=== PATIENT | male | born 1990 | race Caucasian/White ===

== ENCOUNTER 2024-08-11 00:58 | Emergency (ER) | payer SELFPAY ==
[2024-08-11 01:02] VITALS: BP 142/95
[2024-08-11 01:20] VITALS: BMI 22.1
[2024-08-11 01:33] VITALS: BP 139/92
[2024-08-11 01:38] LABS: % Basophils 0.5 % (0-2); % Eosinophils 1.5 % (0-6); % Immature Granulocytes 0.4 % (0-0.5); % Lymphocytes 42.7 % (20.5-51.1); % Monocytes 9.3 % (1.7-9.3); % Neutrophils 45.6 % (42.2-75.2); Absolute Eosinophils 0.1 10^3/uL (0-0.7); Absolute Lymphocytes 3.4 10^3/uL (1.2-3.4); Absolute Monocytes 0.7 10^3/uL (0.1-0.6); Absolute Neutrophils 3.6 10^3/uL (1.4-6.5); Hematocrit 48.5 % (39.0-52.0); Hemoglobin 16.4 g/dL (13.0-18.0); Mean Corp Hgb Conc. 33.8 g/dL (33.0-37.0); Mean Corpuscular Hgb 30.2 pg (27.0-31.0); Mean Corpuscular Volume 89.3 fL (80.0-94.0); Mean Platelet Volume 11.7 fL (7.4-10.4); Nucleated Red Blood Cells % 0 % (-); Platelet Count 201 10^3/uL (130-400); Red Blood Cell Count 5.43 10^6/uL (4.70-6.10); Red Cell Dist. Width 12.3 % (11.5-14.5)
[2024-08-11 01:53] LABS: ALT (SGPT) 38 U/L (0-50); AST (SGOT) 41 U/L (17-59); Albumin 5.2 g/dl (3.5-5.0); Alcohol 144 mg/dl; Alkaline Phosphatase 52 U/L (38-126); Blood Urea Nitrogen 8 mg/dl (9-20); Calcium 9.5 mg/dl (8.4-10.2); Carbon Dioxide 30 mmol/L (22-30); Chloride 101 mmol/L (98-107); Estimated Creatinine Clearance > 125 ml/min; Glucose 118 mg/dl (70-99); Sodium 144 mmol/L (135-145); Total Bilirubin 0.3 mg/dl (0.2-1.3); Total Protein 8.1 g/dl (6.3-8.2); eGFR > 60.00
[2024-08-11 02:25] LABS: Amphetamines Negative (Negative); Barbiturates Negative (Negative); Benzodiazepines Negative (Negative); Buprenorphine Negative (Negative); Cocaine Positive (Negative); Marijuana Negative (Negative); Methadone Negative (Negative); Methamphetamines Negative (Negative); Opiates Negative (Negative); Phencyclidine Negative (Negative); Tricyclic Antidepressants Negative (Negative)
[2024-08-11] MEDS: ZOFRAN ODT (ORALLY DISINTEGRATING) 4 MG PO (02:28)
[2024-08-11] MEDS: PEPCID 40 MG PO (02:28)
[2024-08-11 03:06] LABS: Fentanyl, Urine Negative (Negative)
--- NOTE | 2024-08-11 03:11 | ED.GENMED ---
History of Present Illness
<Yin Monzon DO - Last Filed: 08/11/24 06:11>
General
Chief Complaint: Suicidal Ideation
Time Seen by Provider: 08/11/24 01:51
<KEISHA Real - Last Filed: 08/11/24 06:26>
History of Present Illness
History of Present Illness:
This is a 34 y/o male with PMH of substance abuse and SI who presents to the ED to seek inpatient treatment. He admits to SI with a thought out plan but a friend had convinced him to seek help and come to the ED tonight. He states that he has had SI
for 20 years and thinks about it on a daily basis. Most recently, he was at [facility] in [place], [place] for 7 days in Jun 2024. Previously, he has sought treatment in [place] and lived in a recovery house for 5 months and then was homeless
for a month prior to coming back to the [facility]. He spent 30 days at [facility] in 2023. He admits to using ketamine, heroin, GHB, cocaine, Percocet and Xanax. When asked what the last drug has used, he states it was ketamine 2 days ago.
Smoked 2-3 cigarettes daily. Drinks 5-35 beers daily. States he is originally from [place] and is unable to elaborate when asked what area he has recently been subsiding in. He admits to spending a lot of time in [place]. Pt denies any
thoughts of hurting others. When asked how he is feeling, he states 'like an idiot,' then when asked why, he states 'because you asked.' Denies chest pain, dyspnea, headache, N/V/F, diarrhea, cough and tremor.
Past History
<Yin Monzon DO - Last Filed: 08/11/24 06:11>
Past History
ED Past Medical History: Other (Right bundle branch block)
Social History
Alcohol: Binge drinker
Drug: Marijuana, Cocaine and Narcotics
Personal: Single
Living: with family
Employment: Employed ([employer])
Family History
Family History: Other
Phy Exam
<KEISHA Real - Last Filed: 08/11/24 06:26>
Physical Exam
Physical Exam:
Resp: muscle and respiratory effort symmetric without use of accessory muscles; even, quiet breathing
Heart: No lifts or heaves visible; regular rate and rhythm; No murmurs, rubs or gallops
Course
<Yin Monzon DO - Last Filed: 08/11/24 06:11>
Orders/Labs/Results
Orders:
Orders
08/11/24 01:08
1:1 Observation - Suicide/ Violent Behavior As Directed
Crisis Consult Urgent
Reason for Consult: SI/WITH PLAN, SEVERE DEPRESSION
08/11/24 01:27
Alcohol Urgent
Complete Blood Count/With Diff Urgent
Comprehensive Metabolic Panel Urgent
08/11/24 02:04
Fentanyl, Urine Urgent
Urine Drug Abuse Screen Urgent
Date Specimen was Collected: 08/11/24
Time Specimen was Collected: 02:02
08/11/24 02:23
Famotidine [Pepcid] 40 mg PO NOW STA
Ondansetron Orally Disint [Zofran Odt (Orally Disintegrating)] 4 mg PO NOW STA
Abnormal Lab Results
08/11/24 08/11/24
0127 02:04
MPV 11.7 H fL
(7.4-10.4)
Absolute Monos (auto) 0.7 H 10^3/uL
(0.1-0.6)
BUN 8 L mg/dl
(9-20)
Glucose 118 H mg/dl
(70-99)
Albumin 5.2 H g/dl
(3.5-5.0)
Urine Cocaine Screen Positive H
(Negative)
08/11/24 01:27
08/11/24 01:27
Vital Signs
Initial and Last Documented VS:
Initial Vital Signs
Temp Pulse Resp BP Pulse Ox
98.1 F 110 18 142/95 99
08/11/24 01:02 08/11/24 01:02 08/11/24 01:02 08/11/24 01:02 08/11/24 01:02
Last Documented Vital Signs
Temp Pulse Resp BP Pulse Ox
98.9 F 99 18 139/92 98
08/11/24 01:33 08/11/24 01:33 08/11/24 01:33 08/11/24 01:33 08/11/24 01:33
<KEIHSA Real - Last Filed: 08/11/24 06:26>
Orders/Labs/Results
Orders:
Orders
08/11/24 01:08
1:1 Observation - Suicide/ Violent Behavior As Directed
Crisis Consult Urgent
Reason for Consult: SI/WITH PLAN, SEVERE DEPRESSION
08/11/24 01:27
Alcohol Urgent
Complete Blood Count/With Diff Urgent
Comprehensive Metabolic Panel Urgent
08/11/24 02:04
Fentanyl, Urine Urgent
Urine Drug Abuse Screen Urgent
Date Specimen was Collected: 08/11/24
Time Specimen was Collected: 02:02
08/11/24 02:23
Famotidine [Pepcid] 40 mg PO NOW STA
Ondansetron Orally Disint [Zofran Odt (Orally Disintegrating)] 4 mg PO NOW STA
Abnormal Lab Results
08/11/24 08/11/24
02:04
MPV 11.7 H fL
(7.4-10.4)
Absolute Monos (auto) 0.7 H 10^3/uL
(0.1-0.6)
BUN 8 L mg/dl
(9-20)
Glucose 118 H mg/dl
(70-99)
Albumin 5.2 H g/dl
(3.5-5.0)
Urine Cocaine Screen Positive H
(Negative)
08/11/24 01:27
08/11/24 01:27
Vital Signs
Initial and Last Documented VS:
Initial Vital Signs
Temp Pulse Resp BP Pulse Ox
98.1 F 110 18 142/95 99
08/11/24 01:02 08/11/24 01:02 08/11/24 01:02 08/11/24 01:02 08/11/24 01:02
Last Documented Vital Signs
Temp Pulse Resp BP Pulse Ox
98.9 F 99 18 139/92 98
08/11/24 01:33 08/11/24 01:33 08/11/24 01:33 08/11/24 01:33 08/11/24 01:33
<Yin Monzon DO - Last Filed: 08/11/24 06:11>
*Pulse Oximetry
Patient hypoxic: no
*Critical Care Note
Total Time (30-74mins, 75-104mins- exclusive of procedures): Not Applicable
ED Attending Note
<Yin Monzon DO - Last Filed: 08/11/24 06:11>
ED Attending Note
Patient seen and examined by attending physician: Yes
I performed the substantive portion of visit, reviewed & personally made and approve the management plan that is documented in note by myself or KERLINE.: Yes
ED Attending Note:
This is a 34-year-old homeless gentleman who has a longstanding history of polysubstance abuse, alcohol abuse who presents to the ED requesting assistance with acceptance to rehab center and assistance with his ongoing depression, thoughts of
suicide. He does admit to daily thoughts of suicide, a chronic issue as well as chronic housing instability. He admits to sporadic cocaine, Xanax, Percocet and heroin use. He also admits to sporadic ketamine use. He admits to daily alcohol
consumption.
He has undergone inpatient detox programs in the past including a 7-day stay at a facility in [facility] 1 month ago.
He was also living in a sober living facility for 6 months in [place] 1 year ago.
Records reveal 1 previous ED visit 2020 for very similar presentation/similar complaint.
He denies daily medication use.
He does admit to mild nausea but has had no vomiting. He believes his nausea is related to recent alcohol consumption. He denies prior history of opiate withdrawal nor significant alcohol withdrawal. No prior history of alcohol withdrawal
seizures.
GENERAL: 34-year-old gentleman appears his stated age. He arrived to the ED by himself. He is well-groomed. Mildly tachycardic upon arrival, tachycardia has since resolved.
EYE: pupils equal and reactive. anicteric
NECK: Supple, nontender, no meningismus, no significant adenopathy.
ENT: oral mucosa is moist. No rhinorrhea.
CARDIAC: Regular rate and rhythm. no murmur.
LUNGS: Clear breath sounds bilaterally, no acute respiratory distress, no wheezes/rales/rhonchi
ABDOMEN: Soft, nondistended, without focal tenderness
NEUROLOGICAL: Alert and oriented x3, no focal neuro deficits. Gait is fletcher and steady.
SKIN: Warm and dry, normal color, skin intact. No rash.
MUSCULOSKELETAL: No C/C/E. peripheral pulses are full and equal b/l. No palpable tenderness.
PSYCH: Easily communicative. Maintains eye contact. Admits to chronic depression, chronic thoughts of suicide which have worsened more recently.
Patient has been evaluated by [facility].
Admits to ongoing drug use, alcohol use, acute on chronic depression with suicidal thoughts.
Multiple psychosocial factors including homelessness, financial stressors, lacking healthcare coverage.
It is reassuring that he is eager to receive help.
No evidence of withdrawal syndromes on exam.
Will give an oral dose of Zofran and Pepcid.
He has been offered a box lunch which he declines but accepting of water to drink.
[facility] working on [facility] and dual diagnosis psychiatric bed acceptance
-
Portions of this chart may have been created with voice recognition software.� Occasional wrong word or��sound alike� substitutions may have occurred due to the inherent limitations of voice recognition software.
Discharge Plan
Departure
Patient Disposition: Psych Facility
Date of Disposition: 08/11/24
Time of Disposition: 03:20
Patient with high blood pressure during this ER visit?: No
Condition: Good
Discharge Problem:
Major depression with suicidal thoughts, Alcohol abuse, Cocaine abuse
Referrals:
NONE,* [Family Provider] -
Interventions
Interventions:
*Risk Screen - Suicide Last Done: 08/11/24 01:07
*General Assessment Last Done: 08/11/24 01:20
*Neglect/Abuse Screening Last Done: 08/11/24 01:20
ED- Fall Risk Assessment Last Done: 08/11/24 01:22
*ED COVID-19 Vaccine History Last Done: 08/11/24 01:20
ED-Psychological Assessment Last Done: 08/11/24 01:22
Discharge Date and Time
Print Language: YAKUT
[2024-08-11 08:27] VITALS: BP 134/74
--- NOTE | 2024-08-11 10:32 | CS.PSYCHR ---
Consult Summary - Psychiatry
-
Pt is a 34 yo male with history of substance use, [facility], who was driven by a friend from [place] to . Pt has expressed suicidal ideation with plan to OD. Psychiatry asked to evaluate. Pt seen
resting on stretcher, alert and oriented, calm and cooperative, in no apparent distress. Pt states he has a suicidal plan to OD and has the means. Pt states he called a friend, who can drive him to [place]. Pt shows not signs of psychosis, no
agitation. Reviewed with Crisis staff- pt was accepted at [facility], but [facility] will not fund transport because pt is from [place]. [place] will not accept referrals for pt's who plan to drive themselves to the facility.
Psych Hx: hx of alcohol, heroin, MJ, benzo use. Similar presentation at ED 3 years ago January 2021. Pt denies being prescribed any medications
SH: reportedly homeless, from [place]
MSE: alert, oriented, calm, cooperative. Affect incongruent- stable/no distress. Mood reportedly depressed. Speech/thought coherent/goal-directed. No signs of psychosis. Pt expressed Suicidal plan to OD. Insight appears limited to fair
Imp: Unspecified depressive d/o, reporting SI with plan to OD. Difficult to determine level of risk. Pt stating willingness to go voluntarily to inpatient treatment, but has financial barriers to transport
Rec: Agree with voluntary inpatient treatment. Pt is accepted at a [place] facility, just needs transport. Will follow up with Crisis staff
--- NOTE | 2024-08-11 15:22 | EDRN ---
Report given to [facility].
== END 2024-08-11 15:23 ==
LOC: EMR 00:58
PROVIDERS: CONSULT PHYSICIAN Psychiatry & Neurology Psychiatry; EMERGENCY PHYSICIAN Emergency Medicine
DX: F32.9 Major depressive disorder, single episode, unspecified (principal); R45.851 Suicidal ideations; F10.10 Alcohol abuse, uncomplicated; F14.10 Cocaine abuse, uncomplicated; F17.210 Nicotine dependence, cigarettes, uncomplicated; Z59.00 Homelessness unspecified
CPT/HCPCS: 99285; 80053; 80306; 80307; 82077; 85025